=== PATIENT | male | born 1995 | race Caucasian/White ===

== ENCOUNTER 2019-10-02 20:15 | Emergency (ER) | payer OTHER, SELFPAY ==
[2019-10-02 20:19] VITALS: BP 127/72; PULSE 77; RESP 16; TEMP 37.2; O2SAT 99
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
[2019-10-02 20:51] LABS: Add Manual Diff / Slide Review NO; Basophils Absolute Auto 0 /uL (0-100); Basophils Percent Auto 0.7 % (0-2); Eosinophils Absolute Auto 100 /uL (0-450); Eosinophils Percent Auto 2.8 % (2-4); Hematocrit 42.4 % (41-53); Hemoglobin 14.7 g/dL (13.5-17.5); Lymphocytes Absolute Auto 1300 /uL (1100-4500); Lymphocytes Percent Auto 28.7 % (25-40); Mean Corpuscular HGB Conc 34.7 % (30-36); Mean Corpuscular Hemoglobin 31.7 PG (26-34); Mean Corpuscular Volume 91.4 fL (80-100); Monocytes Absolute Auto 400 /uL (0-900); Monocytes Percent Auto 8.4 % (3-14); Neutrophils Absolute Auto 2600 /uL (1500-7000); Neutrophils Percent Auto 59.4 % (50-75); Platelet Count 211 X10^3/uL (150-400); Red Blood Cell Count 4.64 X10^6/uL (4.5-5.9); Red Cell Distribution Width 12.9 % (11.6-14.8); White Blood Cell Count 4.4 X10^3/uL (4.5-11.0)
[2019-10-02 20:56] LABS: Bacteria Urine None Seen
[2019-10-02 20:57] LABS: Appearance Urine UA CLEAR; Bilirubin Urine UA NEGATIVE (NEGATIVE); Color Urine UA YELLOW; Glucose Urine UA NEGATIVE (Negative); Ketones Urine UA TRACE (NEGATIVE); Leukocyte Esterase Urine UA NEGATIVE (NEGATIVE); Nitrite Urine UA NEGATIVE (Negative); Occult Blood Urine UA NEGATIVE (Negative); Protein Urine UA NEGATIVE (Negative); Specific Gravity Urine UA 1.015 (1.000-1.035); Urobilinogen Urine UA 0.2 E.U./dL (0.2)
[2019-10-02 21:04] LABS: Alanine Aminotransferase 12 IU/L (<50); Albumin Globulin Ratio 1.7 (1.0-2.8); Alkaline Phosphatase 65 U/L (38-126); Aspartate Aminotransferase 35 IU/L (17-59); BUN Creatinine Ratio 19.8 (6-22); Bilirubin Total 0.7 mg/dL (0.2-1.3); Blood Urea Nitrogen 17 mg/dL (9-20); Calcium 9.8 mg/dL (8.4-10.2); Carbon Dioxide 27 mmol/L (22-32); Chloride 103 mmol/L (98-107); Estimated Glomerular Filt Rate > 60.0 mL/min (>60); Ethanol (ETOH) < 10 mg/dL; Glucose 113 mg/dL (70-100); HEMOLYSIS < 15 (0-50); Potassium 3.7 mmol/L (3.4-5.1); Sodium 141 mmol/L (137-145)
--- NOTE | 2019-10-02 21:08 | PC.NURSE ---
Avni Gayle on [email or web address] watch @21:05. Pt currently taking a personal phone call.
[2019-10-02 21:09] LABS: Culture Indicated Urine Cult Not Indicated; RBC Urine 0-1/HPF (0-5/HPF); WBC Urine 0-1/HPF (0-5/HPF)
[2019-10-02 21:15] LABS: UR Morphine/Opiate cutoff 300 Negative (Negative); Ur Creatinine Normal (Normal); Ur Specific Gravity Normal (Normal); Urine Amphetamines Negative (Negative); Urine Barbiturates Negative (Negative); Urine Benzodiazepines Negative (Negative); Urine Cocaine Negative (Negative); Urine MDMA Negative (Negative); Urine Methadone Negative (Negative); Urine Methamphetamines Negative (Negative); Urine Oxycodone Negative (Negative); Urine Phencyclidine Negative (Negative); Urine Tetrahydrocannabinol Negative (Negative); Urine Tricyclic Antidepressant Negative (Negative); Urine pH Normal (Normal)
--- NOTE | 2019-10-02 21:19 | PC.NURSE ---
pt currently has a visitor in room.
--- NOTE | 2019-10-02 21:45 | PC.NURSE ---
Pt and aunt currently speaking with the doctor.
[2019-10-02 22:10] LABS: Thyroid Stimulating Hormone 1.42 uIU/mL (0.47-4.68)
--- NOTE | 2019-10-02 23:23 | PC.NURSE ---
Pt currently meeting with DCR
--- NOTE | 2019-10-02 23:45 | PC.NURSE ---
Patient on gurney,family has been in room with him.
--- NOTE | 2019-10-03 00:30 | PC.NURSE ---
DCR is speaking with Pt and his mother in the room
--- NOTE | 2019-10-03 01:07 | PC.NURSE ---
Pt being discharged and sent home with mother. End watch for Avni Gayle
[2019-10-03 01:13] VITALS: BP 112/70; PULSE 66; RESP 18; O2SAT 98
== END 2019-10-03 01:14 | disposition home or self-care (01) ==
PROVIDERS: Emergency Provider Emergency Medicine
DX: R45.851 Suicidal ideations (principal); F32.9 Major depressive disorder, single episode, unspecified
CPT/HCPCS: 36415; 80053; 80305; 80320; 81001; 84443; 85025; 93005; 99284; 99291; 99292